=== PATIENT | male | born 2000 | race Caucasian/White ===

== ENCOUNTER 2021-06-05 21:57 | Emergency (ER) | payer OTHER ==
[2021-06-05 22:16] VITALS: TEMP 98.6
[2021-06-05 23:53] VITALS: BP 129/86; PULSE 90
== END 2021-06-05 23:53 | disposition home or self-care (01) ==
LOC: COL.ER 21:57
DX: R07.9 Chest pain, unspecified (principal); K29.70 Gastritis, unspecified, without bleeding; Z79.899 Other long term (current) drug therapy

== ENCOUNTER 2021-11-15 21:39 | Emergency (ER) | payer OTHER ==
[~2021-11-15] VITALS: Ht 177.8 cm; Wt 81.8 kg
[2021-11-15 21:54] VITALS: TEMP 99
[2021-11-15 22:29] LABS: BASO # 0.1 K/mm3 (0.0-0.2); BASO % 0.5 % (0.0-2.0); EOS # 0.2 K/mm3 (0.0-0.7); EOS % 2.2 % (0.0-4.0); GRAN # 3.5 K/mm3 (1.4-6.5); HEMATOCRIT 41.9 % (42.0-52.0); HEMOGLOBIN 13.8 g/dl (13.5-18.0); LYMPH # 4.9 K/mm3 (1.2-3.4); LYMPH % 53.1 % (20.0-51.0); MEAN CELL VOLUME 90 fl (80.0-100.0); MEAN CORPUSCULAR HEMOGLOBIN 30 pg (27-31); MEAN CORPUSCULAR HGB CONC 33 g/dl (33.0-37.0); MEAN PLATELET VOLUME 8.7 fl (7.4-10.4); MONO # 0.5 K/mm3 (0.1-0.6); MONO % 5.7 % (1.7-9.3); PLATELET COUNT 309 K/mm3 (130-400); RED BLOOD COUNT 4.68 M/mm3 (4.20-5.60); REDCELL DISTRIBUTION WIDTH-CV 12.7 % (11.5-14.5)
[2021-11-15 22:45] LABS: ALBUMIN 4.1 gm/dL (3.5-5.0); BILIRUBIN,TOTAL 0.4 mg/dL (0.2-1.2); CREATININE, serum 0.9 mg/dL (0.72-1.25); TOTAL PROTEIN 7.4 gm/dL (6.2-8.1)
[2021-11-15 23:00] VITALS: BP 150/80; PULSE 91
== END 2021-11-15 23:01 | disposition home or self-care (01) ==
LOC: COL.ER 21:39
PROVIDERS: Emergency Medicine
DX: K62.5 Hemorrhage of anus and rectum (principal); R10.13 Epigastric pain; Z28.310 Unvaccinated for COVID-19
CPT/HCPCS: J7030

== ENCOUNTER 2022-08-22 09:19 | Emergency (ER) | payer OTHER ==
[~2022-08-22] VITALS: Ht 177.8 cm; Wt 84.5 kg
[2022-08-22 09:26] VITALS: TEMP 97.9
[2022-08-22 09:59] LABS: BASO % 0.6 % (0.0-2.0); EOS # 0.3 K/mm3 (0.0-0.7); EOS % 3.9 % (0.0-4.0); GRAN # 2.5 K/mm3 (1.4-6.5); HEMATOCRIT 46.5 % (42.0-52.0); HEMOGLOBIN 15.8 g/dl (13.5-18.0); LYMPH # 3.7 K/mm3 (1.2-3.4); LYMPH % 54.2 % (20.0-51.0); MEAN CELL VOLUME 88 fl (80.0-100.0); MEAN CORPUSCULAR HEMOGLOBIN 30 pg (27-31); MEAN CORPUSCULAR HGB CONC 34 g/dl (33.0-37.0); MEAN PLATELET VOLUME 9.4 fl (7.4-10.4); MONO # 0.3 K/mm3 (0.1-0.6); PLATELET COUNT 354 K/mm3 (130-400); RED BLOOD COUNT 5.26 M/mm3 (4.20-5.60); REDCELL DISTRIBUTION WIDTH-CV 11.9 % (11.5-14.5)
[2022-08-22 10:20] LABS: ALANINE AMINOTRANSFERASE 25 U/L (0-55); ALBUMIN 4.8 gm/dL (3.5-5.0); ALKALINE PHOSPHATASE 49 U/L (40-150); ANION GAP 10 mmol/L (7-16); AST,SGOT 22 U/L (5-34); BLOOD UREA NITROGEN 11 mg/dL (9-21); CARBON DIOXIDE 24 mmol/L (22-29); CHLORIDE 108 mmol/L (98-107); CREATININE, serum 0.92 mg/dL (0.72-1.25); GLUCOSE 94 mg/dL (70-99); POTASSIUM 3.9 mmol/L (3.5-4.5); SODIUM 142 mmol/L (136-145); TOTAL PROTEIN 7.9 gm/dL (6.2-8.1)
[2022-08-22 10:34] LABS: TROPONIN-I < 0.010 ng/mL (0.00-0.033)
[2022-08-22 10:52] LABS: BILIRUBIN,TOTAL 0.8 mg/dL (0.2-1.2)
[2022-08-22 11:43] VITALS: BP 156/88; PULSE 93
== END 2022-08-22 11:44 | disposition home or self-care (01) ==
LOC: COL.ER 09:19
PROVIDERS: Personal Emergency Response Attendant
DX: R07.9 Chest pain, unspecified (principal); A04.9 Bacterial intestinal infection, unspecified